=== PATIENT | female | born 1975 | race Caucasian/White ===

== ENCOUNTER 2020-07-05 07:24 | Outpatient (REF) | payer OTHER, SELFPAY ==
--- NOTE | ~2020-07-05 | MM_ITS ---
EXAMINATION: MM BREAST DIAGNOSTIC DIGITAL TOMOSYNTHESIS, LEFT CLINICAL INFORMATION: Left breast lump 2 o'clock The lifetime risk of breast cancer based on the Tyrer-Cuzick Model is 5.1%. COMPARISON: Mammography: None at this time. Previous studies done at [facility], an attempt will be made to obtain these films. TECHNIQUE: Digital breast tomosynthesis is performed in both the craniocaudal and mediolateral oblique views along with computer-aided detection (CAD). Synthesized 2D images are generated from the tomosynthesis. FINDINGS: The breasts are almost entirely fatty (ACR BI-RADS breast composition Category a). There are no significant masses, abnormal calcifications, or other abnormalities. Targeted left breast ultrasound did not demonstrate any abnormal cystic or solid mass. No region of abnormal distal sound shadowing. No edematous change within tissues. Results are provided to the patient at time of visit by the technologist. MM/MM tomosynthesis diagnostic LT IMPRESSION: No specific mammographic or ultrasound findings to suggest malignancy of the left breast. Addendum to report will be made when old films are obtained for comparison. BI-RADS 1: Negative RECOMMENDATION: Comparison to prior studies if they can be obtained. Addendum to report will be made when prior studies are available for comparison. This patient's information was entered into a reminder system with a target due date for their next mammogram.
--- NOTE | ~2020-07-05 | US_ITS ---
EXAMINATION: US DIAGNOSTIC ULTRASOUND BREAST, LEFT CLINICAL INFORMATION: Lump/pain 2:00 position left breast. COMPARISON: None. TECHNIQUE: Ultrasound of the breast is performed with real-time chester scale imaging and color Doppler. FINDINGS: There is no focal suspicious finding. There is no solid mass, architectural abnormality, duct ectasia, or edema in the soft tissue planes. Results are discussed with the patient at time of visit. US/US breast LT limited IMPRESSION: No specific ultrasound findings to suggest malignancy. ASSESSMENT: BI-RADS 1: Negative RECOMMENDATION: Routine annual screening. Addendum to report will be made when previous studies are obtained for comparison. This patient's information was entered into a reminder system with a target due date for their next mammogram.
== END 2020-07-05 07:25 | disposition home or self-care (01) ==
LOC: HO.MAMMO 07:24
PROVIDERS: PCP Internal Medicine; Visit Provider Emergency Medicine
DX: N64.4 Mastodynia (principal); N63.21 Unspecified lump in the left breast, upper outer quadrant
CPT/HCPCS: 76642; 77061; 77065

== ENCOUNTER → 2024-01-27 10:51 | Outpatient (RCR) | payer OTHER, SELFPAY ==
[2020-04-20 10:55] VITALS: BP 121/74; PULSE 98; RESP 12; TEMP 36.4; O2SAT 96; BMI 27.3
--- NOTE | 2020-04-20 11:05 | P.PNHO_ITS ---
Medical Summary - Medical Summary Chief complaint: Follow-up Medical Summary: Diagnosis: Recurrent left lower extremity DVT 2015 Ms. García was diagnosed with left knee meniscal problems and underwent elective arthroscopic knee surgery in September 2014. Presented to the emergency department November 15, 2014 with left leg pain. Doppler of the left lower extremity revealed an extensive clot occluding the superficial femoral vein through the calf veins. She was noted to be on oral estrogen which was discontinued. She was started on enoxaparin 70 mg q.12 along with Coumadin. There is a family history of blood clot in her brother who is on Coumadin but unsure of exact diagnosis or circumstances of the clot. Thrombophilia workup revealed negative lupus anticoagulant, factor V Leiden mutation negative, prothrombin gene mutation negative. D-dimer February 21, [address] abdomen and pelvis November 30, 2014 showed no evidence of recurrent or metastatic malignancy. The patient was advised to stop Coumadin on 06/22/2015 after more than 6 months of AC and resolution of previously seen clot on USG. Patient developed a spontaneous recurrent DVT in the left lower extremity, in Dec 2015 dx at [facility]. Resumed warfarin. Thrombophilia workup was all negative. Now on long-term anticoagulation because of recurrent clot. Interval History Interval history: Patient is here in follow-up. She is doing quite well, she is happy that she is on Eliquis and does not need frequent INR monitoring. She denies any bruising or bleeding. She denies any swelling in her left leg, pain or redness. She has been doing well during this pandemic and has no complaints today. Review of Systems - Constitutional Reports no additional constitutional complaints - Cardiovascular Reports no additional cardiovascular complaints - Respiratory Reports no additional respiratory complaints - Gastrointestinal Reports no additional gastrointestinal complaints [facility] Medical History: Medical History (Last Updated 04/20/20 @ 10:25 by Jennifer Fang) Anxiety Arthritis pain Cervical cancer Depression Family History: Family History (Last Updated 04/20/20 @ 11:01 by Jennifer Fang) Brother Pulmonary emboli Father H/O heart surgery Maternal Grandmother HTN (hypertension) Surgical History: Surgical History (Last Updated 04/20/20 @ 10:26 by Jennifer Fang) History of hysterectomy with bilateral oophorectomy Smoking status: Never smoker Substance use type: does not use Oncology Screenings - ECOG Performance Status ECOG Performance Status: 0 Home Medications and Allergies Home Medications Medication Instructions Recorded Confirmed Type apixaban [Eliquis] 1 tab PO BID 04/20/20 04/20/20 History ascorbic acid (vitamin C) [Vitamin 500 mg PO DAILY 04/20/20 04/20/20 History C] Allergies Allergy/AdvReac Type Severity Reaction Status Date / Time morphine [MORPHINE] Allergy Intermediate RED AND Unverified 02/16/20 18:30 ITCHY, itchy, rash Exam Vital signs: Vital Signs Temp 97.5 F 04/20/20 10:55 Pulse 98 04/20/20 10:55 Resp 12 04/20/20 10:55 BP 121/74 04/20/20 10:55 Pulse Ox 96 04/20/20 10:55 Intake & Output 04/19/20 04/20/20 04/20/20 18:59 06:59 18:59 Other: Weight 69.9 kg Weight 69.9 kg Body Mass Index 27.3 - Constitutional Present: no acute distress - Routine HEENT Exam Head: Present: normal inspection Eye: Present: EOMI - Routine Neck Exam Present: normal inspection - Routine Respiratory Exam Present: CTAB - Routine Cardiovascular Exam Cardiovascular: Present: S1, S2 - Routine Extremities Exam Absent: calf tenderness, joint swelling, pedal edema Data - Labs CBC & Chem 7: 04/20/20 11:07 04/20/20 11:07 Progress Note: A/P (1) Left leg DVT Status: Chronic Assessment and plan: 1. This is a 44-year-old female with recurrent left lower extremity deep venous thrombosis dx in october 2014. Initially occured in postoperative setting after arthroscopic knee surgery. Her risk factors include obesity as well as being on estrogen therapy at the time of deep venous thrombosis. Repeat doppler in jan 2015, negative for DVT. She stopped AC in jun 2015 Patient developed a spontaneous recurrent DVT in the left lower extremity, in Dec 2015 dx at [facility]. Resumed warfarin. Thrombophilia workup was all negative. Now on long-term anticoagulation because of recurrent clot. She was switched to Eliquis 5 mg b.i.d. in December 2019. She is tolerating it well. Blood work and exam today looks good. Follow-up in 1 year, sooner if any new symptoms arise. - Time Spent With Patient Total time spent is greater than 50% in coordination of care (as documented) at patient's floor/unit and/or counseling patient: 15 - 24 minutes
[2020-04-20 11:16] LABS: Hematocrit 36.7 % (37-47); Hemoglobin 12.4 g/dl (12.0-16.0); Mean Corpuscular HGB Conc 33.8 g/dl (31.0-35.0); Mean Corpuscular Hemoglobin 29.7 pg (27.0-33.0); Mean Platelet Volume 9.9 fL (9.4-12.3); Platelet Count 267 X10*3/uL (160-400); Red Blood Count 4.17 X10*6/uL (4.20-5.50); Red Cell Distribution Width 12.3 % (11.0-16.0); White Blood Count 5.1 X10*3/uL (4.8-10.8)
[2020-04-20 11:45] LABS: Alanine Aminotransferase 20 U/L (0-31); Albumin Level 4.3 g/dL (3.5-5.0); Alkaline Phosphatase 41 U/L (39-117); Anion Gap 14 (12-20); Aspartate Amino Transferase 19 U/L (5-31); Bilirubin Total 0.8 mg/dL (0.0-1.0); Blood Urea Nitrogen 11 mg/dL (9-16); Calcium 9.1 mg/dL (8.4-10.2); Carbon Dioxide 26 mmol/L (22-29); Chloride 104 mmol/L (96-108); Creatinine Clr Calc Pharmacy 84.2; Estimated Glomerular Filt Rate > 60; Glucose Random 117 mg/dL (60-115); Potassium 4.5 mmol/l (3.3-5.1); Sodium 139 mmol/L (135-145); Total Protein 7.3 g/dL (6.5-8.0)
--- NOTE | 2021-05-09 16:50 | MHC.HEMONC ---
Nurse received recorded VM from Lilo, a patient rep from [facility], , calling to report that the pt had been to her pharmacy today, attempting to refill her PO Eliquis 5 mg BID, but was told it was too early to refill. Apparently, the pt needs the med urgently, as she will be moving to [place] the following day. Nurse called the number on caller ID, spoke w/ Rep Shawn, passed along the message that pt's provider, Dr. Ríos, is not at work today, and the other provider has left for the day, but this nurse will inform Dr. Ríos the following morning, and to please have Lilo f/u tomorrow if it is not too late for Dr. Ríos to assist.
== END | disposition home or self-care (01) ==
LOC: HO.ONC 04-20 10:45
PROVIDERS: PCP Internal Medicine; Visit Provider Internal Medicine
DX: Z86.718 Personal history of other venous thrombosis and embolism (principal); Z79.01 Long term (current) use of anticoagulants
CPT/HCPCS: 36415; 80053; 85027; 99213